=== PATIENT | male | born 1955 ===

== ENCOUNTER 2017-05-15 10:53 | Outpatient (CLI) | payer BC ==
--- NOTE | 2017-05-15 15:01 | XRay Report ---
X-RAY RIGHT WRIST FOUR VIEWS: 05/15/17 CLINICAL: Right wrist pain. FINDINGS: No fracture or dislocation. 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 The distal radius and ulna are normal. Mild radiocarpal joint arthritis. Normal soft tissues. IMPRESSION: Arthritis as described above.
== END 2017-05-15 10:54 | disposition home or self-care (01) ==
LOC: SPVIMAG 10:53
PROVIDERS: ATTEND Orthopaedic Surgery
DX: M19.131 Post-traumatic osteoarthritis, right wrist (principal); M18.9 Osteoarthritis of first carpometacarpal joint, unspecified